=== PATIENT | male | born 1930 | race Caucasian/White ===

== ENCOUNTER 2016-06-25 15:24 | Inpatient (IN) | payer OTHER ==
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
--- NOTE | 2016-06-25 15:37 | CPEKG ---
Heart Rate: 69 RR Interval: 870 P-R Interval: 204 QRSD Interval: 124 QT Interval: 440 QTC Interval: 472 P [place]: 4 QRS [place]: -57 T Wave [place]: 106 EKG Severity - ABNORMAL ECG - EKG Impression: SINUS RHYTHM EKG Impression: VENTRICULAR PREMATURE COMPLEX EKG Impression: LBBB Electronically Signed By: Melvina Leal 26-Jun-2016 10:32:17
[2016-06-25 16:14] LABS: % IMMATURE GRANULYOCYTES 0.7 % (0.0-1.1); ABSOLUTE IMMATURE GRANULOCYTES 0.04 10^3/uL (0.00-0.10); ABSOLUTE NRBC COUNT 0.02 10^3/uL (0-0.01); ADD DIFF? NO; ADD MORPH? NO; ADD SCAN? NO; ATYPICAL LYMPHOCYTE FLAG 0 (0-99); FRAGMENT RBC FLAG 0 (0-99); HEMATOCRIT 39.9 % (40.0-51.0); HEMOGLOBIN 13.5 g/dL (13.7-17.5); LEFT SHIFT FLG 0 (0-99); LIPEMIA HEMOLYSIS FLAG 90 (0-99); MEAN CELL HEMOGLOBIN 32.1 pg (27.9-34.1); MEAN CELL HEMOGLOBIN CONCENTR. 33.8 g/dL (32.4-36.7); MEAN CELL VOLUME 94.8 fL (81.5-99.8); MEAN PLATELET VOLUME 11.5 fL (8.7-11.7); NRBC-AUTO% 0.3 % (0.0-0.2); PLATELET CLUMPS FLAG 50 (0-99); PLATELET COUNT 111 10^3/uL (150-400); RED BLOOD CELL COUNT 4.21 10^6/uL (4.40-6.38); RED CELL DISTRIBUTION WIDTH 13.6 % (11.5-15.2)
[2016-06-25 16:22] LABS: ALANINE AMINOTRANSFERASE 36 IU/L (21-72); ALBUMIN 3.7 g/dL (3.5-5.0); ALKALINE PHOSPHATASE 91 IU/L (38-126); ANION GAP 10 mEq/L (8-16); ASPARTATE AMINOTRANSFERASE 31 IU/L (17-59); BILIRUBIN,TOTAL 0.8 mg/dL (0.1-1.4); BILIRUBIN-CONJUGATED 0.6 mg/dL (0.0-0.5); BILIRUBIN-UNCONJUGATED 0.2 mg/dL (0.0-1.1); CALCIUM 9.1 mg/dL (8.5-10.4); CARBON DIOXIDE 23 mEq/l (22-31); CHLORIDE 97 mEq/L (97-110); CREATININE 1.5 mg/dL (0.7-1.3); GLOMERULAR FILTRATION RATE 44; GLUCOSE 128 mg/dL (70-100); POTASSIUM 4.8 mEq/L (3.5-5.2); SODIUM 130 mEq/L (134-144); TOTAL PROTEIN 6.6 g/dL (6.3-8.2)
[2016-06-25 16:33] LABS: TROPONIN I < 0.012 ng/mL (0-0.034)
[2016-06-25] MEDS ORDERED: MIDAZOLAM 2 MG/2 ML VIAL ONE (17:48)
[2016-06-25] MEDS ORDERED: MIDAZOLAM 2 MG/2 ML VIAL IM ONE (17:57)
[2016-06-25 18:04] LABS: INR 0.97 (0.83-1.16); PROTIME(PATIENT) 12.8 SEC (12.0-15.0)
[2016-06-25 18:05] LABS: APTT 22.8 SEC (23.0-38.0)
[2016-06-25] MEDS ORDERED: ONDANSETRON DISINTEGRATING 4 MG TAB PO PRN (18:31)
[2016-06-25] MEDS ORDERED: LORazepam 2 MG/ML INJ IVP PRN (18:31)
[2016-06-25] MEDS ORDERED: LORazepam 0.5 MG TAB PO PRN (18:31)
[2016-06-25] MEDS ORDERED: ONDANSETRON 4 MG/2 ML VIAL IVP PRN (18:31)
[2016-06-25] MEDS ORDERED: ACETAMINOPHEN 325 MG TAB PO PRN (18:31)
[2016-06-25] MEDS ORDERED: NS 1,000 ML IV SCH (18:45)
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
[2016-06-25] MEDS: IPRATROPIUM/ALBUTEROL 3 ML DEYVIAL IH SCH (22:19)
[2016-06-26 05:50] LABS: % IMMATURE GRANULYOCYTES 0.2 % (0.0-1.1); ABSOLUTE IMMATURE GRANULOCYTES 0.01 10^3/uL (0.00-0.10); ADD DIFF? NO; ADD MORPH? NO; ADD SCAN? NO; ATYPICAL LYMPHOCYTE FLAG 0 (0-99); FRAGMENT RBC FLAG 0 (0-99); HEMOGLOBIN 12.5 g/dL (13.7-17.5); LEFT SHIFT FLG 0 (0-99); LIPEMIA HEMOLYSIS FLAG 90 (0-99); MEAN CELL HEMOGLOBIN 31.9 pg (27.9-34.1); MEAN CELL HEMOGLOBIN CONCENTR. 33.8 g/dL (32.4-36.7); MEAN CELL VOLUME 94.4 fL (81.5-99.8); MEAN PLATELET VOLUME 11.5 fL (8.7-11.7); PLATELET CLUMPS FLAG 0 (0-99); PLATELET COUNT 128 10^3/uL (150-400); RED BLOOD CELL COUNT 3.92 10^6/uL (4.40-6.38); RED CELL DISTRIBUTION WIDTH 13.4 % (11.5-15.2)
[2016-06-26 06:02] LABS: ANION GAP 6 mEq/L (8-16); CARBON DIOXIDE 25 mEq/l (22-31); CHLORIDE 105 mEq/L (97-110); CREATININE 1.4 mg/dL (0.7-1.3); GLOMERULAR FILTRATION RATE 48; GLUCOSE 94 mg/dL (70-100); POTASSIUM 4.4 mEq/L (3.5-5.2); SODIUM 136 mEq/L (134-144)
[2016-06-26] MEDS: IPRATROPIUM/ALBUTEROL 3 ML DEYVIAL IH SCH ×4 (06:16→21:41)
--- NOTE | 2016-06-26 14:56 | HOSPPROG ---
Hospitalist Progress Note Assessment/Plan: This is a 85-year-old male new to my care presenting with: # history of dementia with acute encephalopathy and combative behavior ( improving) # resolved SIRS without any obvious signs of infection query acute aspiration pneumonitis # acute on chronic kidney injury (Stable) # congestive heart failure secondary to diastolic dysfunction (compensated) # history of COPD # hyponatremia (resolved) # thrombocytopenia plan - speech evaluation to evaluate for aspiration - continue to monitor off of antibiotics - continue home medications - case management to help with placement -await hospice eval pending dispo: DC to memory care unit tomorrow if bed is available Subjective: patient is somnolent not combative Objective: Vital Signs Temp Pulse Resp BP Pulse Ox 36.6 C 70 12 111/77 92 06/26/16 08:12 06/26/16 09:06 06/26/16 09:06 06/26/16 08:12 06/26/16 09:06 Laboratory Results 06/26/16 05:12 06/26/16 05:12 06/25/16 06/26/16 06/27/16 05:59 05:59 05:59 Intake Total 1000 480 Balance 1000 480 PT 12.8 SEC (12.0-15.0) 06/25/16 16:28 INR 0.97 (0.83-1.16) 06/25/16 16:28 - Physical Exam Constitutional: no apparent distress, appears nourished, not in pain Cardiovascular: regular rate and rhythym, no murmur, rub, or gallop Respiratory: no respiratory distress, no rales or rhonchi, clear to auscultation Gastrointestinal: normoactive bowel sounds, soft, non-tender abdomen, no palpable masses Neurologic: other ( hard to arouse) ICD10 Worksheet Patient Problems: Problems Problem Status Onset Acute encephalopathy Acute Dementia Chronic Depression Acute Left wrist sprain Acute Dehydration Acute Chronic renal failure, stage 3 (moderate) Acute Diarrhea Acute Dehydration, severe Acute Jock itch Acute Dementia Acute Combative behavior Acute
[2016-06-26] MEDS: SERTRALINE HCL 100 MG TAB PO SCH (23:03)
[2016-06-26] MEDS: LORazepam 1 MG TAB PO SCH (23:04)
[2016-06-26] MEDS: ACETAMN/DIPHENHYDRAMINE 500/25MG TAB PO SCH (23:04)
[2016-06-26] MEDS: CHOLECALCIFEROL VIT D3 2,000 UNITS TAB/CAP PO SCH (23:04)
[2016-06-26] MEDS: risperiDONE 1 MG TAB PO SCH (23:04)
[2016-06-27 05:45] LABS: % IMMATURE GRANULYOCYTES 0.2 % (0.0-1.1); ABSOLUTE IMMATURE GRANULOCYTES 0.01 10^3/uL (0.00-0.10); ADD DIFF? NO; ADD MORPH? NO; ADD SCAN? NO; ATYPICAL LYMPHOCYTE FLAG 0 (0-99); FRAGMENT RBC FLAG 0 (0-99); HEMATOCRIT 36.5 % (40.0-51.0); HEMOGLOBIN 12.2 g/dL (13.7-17.5); LEFT SHIFT FLG 0 (0-99); LIPEMIA HEMOLYSIS FLAG 80 (0-99); MEAN CELL HEMOGLOBIN 31.9 pg (27.9-34.1); MEAN CELL HEMOGLOBIN CONCENTR. 33.4 g/dL (32.4-36.7); MEAN CELL VOLUME 95.3 fL (81.5-99.8); MEAN PLATELET VOLUME 11.6 fL (8.7-11.7); PLATELET CLUMPS FLAG 0 (0-99); PLATELET COUNT 130 10^3/uL (150-400); RED BLOOD CELL COUNT 3.83 10^6/uL (4.40-6.38); RED CELL DISTRIBUTION WIDTH 13.9 % (11.5-15.2)
[2016-06-27 06:06] LABS: ANION GAP 8 mEq/L (8-16); CALCIUM 8.9 mg/dL (8.5-10.4); CARBON DIOXIDE 21 mEq/l (22-31); CHLORIDE 108 mEq/L (97-110); CREATININE 1.7 mg/dL (0.7-1.3); GLOMERULAR FILTRATION RATE 38; GLUCOSE 102 mg/dL (70-100); POTASSIUM 4.5 mEq/L (3.5-5.2); SODIUM 137 mEq/L (134-144)
[2016-06-27] MEDS: IPRATROPIUM/ALBUTEROL 3 ML DEYVIAL IH SCH ×4 (06:22→16:45)
[2016-06-27] MEDS: ATENOLOL 25 MG TAB PO SCH (09:01)
[2016-06-27] MEDS: ACETAMINOPHEN 325 MG TAB PO SCH (09:01)
[2016-06-27] MEDS: SERTRALINE HCL 50 MG TAB PO SCH (09:01)
[2016-06-27] MEDS: LOSARTAN POTASSIUM 50 MG TAB PO SCH (09:01)
[2016-06-27] MEDS: FUROSEMIDE 40 MG TAB PO SCH (09:01)
[2016-06-27] MEDS: ATORVASTATIN CALCIUM 20 MG TAB PO SCH (09:01)
[2016-06-27] MEDS: risperiDONE 1 MG TAB PO SCH ×2 (09:02→20:50)
--- NOTE | 2016-06-27 15:38 | HOSPPROG ---
Hospitalist Progress Note Assessment/Plan: This is a 85-year-old male presenting with: # history of dementia with acute encephalopathy and combative behavior ( improving) # resolved SIRS without any obvious signs of infection query acute aspiration pneumonitis # acute on chronic kidney injury (Stable) # congestive heart failure secondary to diastolic dysfunction (compensated) # history of COPD # hyponatremia (resolved) # thrombocytopenia plan - speech evaluation done - reg texture/ thin liquids. - continue to monitor off of antibiotics - continue home medications - case management to help with placement -Pt did not qualify for hospice. dispo: DC to his SNF once bed is available. Subjective: Saw pt today, spoke w/ RN. No new problems. Objective: Vital Signs Temp Pulse Resp BP Pulse Ox 36.7 C 74 12 129/73 H 93 06/27/16 08:58 06/27/16 11:24 06/27/16 11:24 06/27/16 08:58 06/27/16 11:24 Laboratory Results 06/27/16 05:08 06/27/16 05:08 06/26/16 06/27/16 06/28/16 05:59 05:59 06:59 Intake Total 1000 1240 150 Balance 1000 1240 150 PT 12.8 SEC (12.0-15.0) 06/25/16 16:28 INR 0.97 (0.83-1.16) 06/25/16 16:28 General: The patient isAn elderly, obese male who is alert and in no acute distress. HEENT: normocephalic, extraocular movements intact, conjunctivae clear, no lesions on face. Nares and oral mucosa pink and moist. Neck: trachea midline, no visible masses, no external lesions. CV: +S1/S2, RRR, +Systolic murmur best heard at right of sternum without any radiation to carotids. Resp: unlabored, CTAB no RRW. Abd: soft and nondistended. +BS. Nontender. Musculoskeletal: Normal gait. Neuro: cranial nerves II XII grossly intact. Intact gross motor and sensory function. Psych: appropriate mood/affect. Skin: no pallor. Heme/Lymph: no edema. ICD10 Worksheet Patient Problems: Problems Problem Status Onset Combative behavior Acute Dementia Acute Acute encephalopathy Acute Chronic renal failure, stage 3 (moderate) Acute Dehydration Acute Dehydration, severe Acute Depression Acute Diarrhea Acute Jock itch Acute Left wrist sprain Acute Dementia Chronic
[2016-06-27] MEDS: CHOLECALCIFEROL VIT D3 2,000 UNITS TAB/CAP PO SCH (20:50)
[2016-06-27] MEDS: LORazepam 1 MG TAB PO SCH (20:50)
[2016-06-27] MEDS: SERTRALINE HCL 100 MG TAB PO SCH (20:50)
[2016-06-27] MEDS: ACETAMN/DIPHENHYDRAMINE 500/25MG TAB PO SCH (20:50)
[2016-06-28] MEDS: IPRATROPIUM/ALBUTEROL 3 ML DEYVIAL IH SCH ×3 (04:51→10:55)
[2016-06-28 05:25] VITALS: RESP 16
[2016-06-28 06:14] LABS: ADD DIFF? NO; ADD MORPH? NO; ADD SCAN? NO; ATYPICAL LYMPHOCYTE FLAG 0 (0-99); FRAGMENT RBC FLAG 0 (0-99); HEMATOCRIT 36.5 % (40.0-51.0); LEFT SHIFT FLG 0 (0-99); LIPEMIA HEMOLYSIS FLAG 80 (0-99); MEAN CELL HEMOGLOBIN 31.7 pg (27.9-34.1); MEAN CELL HEMOGLOBIN CONCENTR. 32.9 g/dL (32.4-36.7); MEAN CELL VOLUME 96.3 fL (81.5-99.8); MEAN PLATELET VOLUME 10.9 fL (8.7-11.7); PLATELET CLUMPS FLAG 10 (0-99); PLATELET COUNT 128 10^3/uL (150-400); RED BLOOD CELL COUNT 3.79 10^6/uL (4.40-6.38); RED CELL DISTRIBUTION WIDTH 14.1 % (11.5-15.2)
[2016-06-28 06:45] LABS: ANION GAP 9 mEq/L (8-16); CARBON DIOXIDE 21 mEq/l (22-31); CHLORIDE 107 mEq/L (97-110); CREATININE 1.6 mg/dL (0.7-1.3); GLOMERULAR FILTRATION RATE 41; GLUCOSE 93 mg/dL (70-100); POTASSIUM 4.6 mEq/L (3.5-5.2); SODIUM 137 mEq/L (134-144)
[2016-06-28] MEDS: ATENOLOL 25 MG TAB PO SCH (08:59)
[2016-06-28] MEDS: FUROSEMIDE 40 MG TAB PO SCH (08:59)
[2016-06-28] MEDS: SERTRALINE HCL 50 MG TAB PO SCH (08:59)
[2016-06-28] MEDS: LOSARTAN POTASSIUM 50 MG TAB PO SCH (09:00)
[2016-06-28] MEDS: ATORVASTATIN CALCIUM 20 MG TAB PO SCH (09:00)
[2016-06-28] MEDS: risperiDONE 1 MG TAB PO SCH (09:00)
[2016-06-28] MEDS: ACETAMINOPHEN 325 MG TAB PO SCH (09:00)
[2016-06-28 09:49] VITALS: BP 112/70; TEMP 98.1; O2SAT 94
[2016-06-28 11:00] VITALS: PULSE 64
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
--- NOTE | 2016-06-28 13:48 | PDIAF ---
- Diagnosis Code Status: Full Code - Medication Management Discharge Medications: Medications to Continue on Transfer Atenolol [Tenormin 25 mg (*)] 25 mg PO DAILY 01/25/15 [Last Taken 06/25/16] Losartan Potassium [Cozaar 50 mg (*)] 50 mg PO DAILY 01/25/15 [Last Taken ] Simvastatin [Zocor] 40 mg PO DAILY 01/25/15 [Last Taken 06/25/16] Furosemide [Lasix 40 MG (*)] 40 mg PO DAILY 02/13/15 [Last Taken 06/25/16] Sertraline HCl [Zoloft 20mg/ml oral liquid] 50 mg PO DAILY 05/24/15 [Last Taken 06/25/16] Sertraline HCl [Zoloft 20mg/ml oral liquid] 100 mg PO HS 04/02/16 [Last Taken ] risperiDONE [Risperdal 1mg (*)] 1 mg PO BID #0 tab 04/04/16 [Last Taken 09:00] Cholecalciferol Vit D3 [Vitamin D3 (*)] 5,000 units PO HS 06/26/16 [Last Taken 06/24/16] Acetaminophen [Tylenol 325mg (*)] 650 mg PO Q4HRS PRN #0 tab 06/28/16 [Last Taken Unknown] Discharge Medications: Refer to the Discharge Home Medication list for PRN reason. - Orders Services needed: Registered Nurse, Certified [employer] News Reporter, Master Budget Assistant , Physical Therapy, Occupational Therapy Diet Recommendation: sodium restricted Diet Texture: Regular Texture Diet, Thin Liquids - Follow Up Care Current Providers and Referrals: Patient,NotPresent [Primary Care Provider] - 1-2 days
== END 2016-06-28 14:40 | DRG 884 ==
LOC: EDUNIT# → F1N 18:22 → OBSVTOIN 18:31
PROVIDERS: ADMIT Internal Medicine Pulmonary Disease; ATTEND Internal Medicine
DX: F03.91 Unspecified dementia, unspecified severity, with behavioral disturbance (principal); I50.30 Unspecified diastolic (congestive) heart failure; I12.9 Hypertensive chronic kidney disease with stage 1 through stage 4 chronic kidney disease, or unspecified chronic kidney disease; N17.9 Acute kidney failure, unspecified; N18.9 Chronic kidney disease, unspecified; D69.6 Thrombocytopenia, unspecified; J44.9 Chronic obstructive pulmonary disease, unspecified; E87.1 Hypo-osmolality and hyponatremia; M10.9 Gout, unspecified
CPT/HCPCS: 92610-GN; 97116-GP; 97161-GP; G8978-GP-CJ; G8979-GP-CI; G8996-GN-CH; G8997-GN-CH; G8998-GN-CH; J2250